=== PATIENT | female | born 2000 | race Caucasian/White ===

== ENCOUNTER 2020-12-24 05:57 | Emergency (ER) | payer SELFPAY ==
[~2020-12-24] VITALS: Ht 162.6 cm; Wt 56.8 kg
--- NOTE | 2020-12-24 07:25 | RAD ---
EXAMINATION: Left foot radiograph. VIEWS: 3 views COMPARISON: None INDICATION:20 years, Female, trauma. FINDINGS: No acute fracture, dislocation or subluxation. No bone erosion or periosteal reaction. Soft tissue sw elling of the dorsal foot overlies metatarsal bones. IMPRESSION: No acute osseous process. Electronically signed by: Aron Valles MD (12/24/2020 7:23 AM) [facility]
[2020-12-24] MEDS ORDERED: ACET1TAB33 PO (07:54)
--- NOTE | 2020-12-24 07:59 | ED.ADGEN ---
Past Medical History Past Medical History: No Pertinent History Past Surgical History: No Surgical History Smoking Status: Current Every Day Smoker Alcohol Use: Occasionally General Adult EDM: Chief Complaint: FOOT INJURY PAIN HPI: HPI: Patient is a 20-year-old previously healthy female who presents to the emergency room complaining of pain to her left foot. Patient was moving last Thursday when she dropped her couch directly onto her foot. She states that she has been having throbbing in her foot since that time and gets sharp shooting pains into the back of her leg. She denies any numbness. She has been able to ambulate. She denies any other injuries. Pain is constant and worse with walking Review of Systems: Review of Systems: Complete ROS is negative unless otherwise documented in HPI Allergies: Allergies: Allergies Coded Allergies Type Severity Reaction Last Updated Verified No Known Drug Allergies 12/24/20 No Physical Exam: PE: General: Awake, alert, NAD. Well Nourished, well hydrated. Cooperative HEENT: Atraumatic, EOMI, PERRL, airway patent, moist oral mucosa Neck: Supple, trachea midline Respiratory: CTA bilaterally, normal effort, no wheezing/crackles CV: RRR, no murmur, cap refill <2 GI: Soft, nondistended, nontender, no masses MSK: Left foot: Significant bruising at the base of all 5 toes with bruising extending through the dorsal foot, 2+ DP/TP pulses, intact sensation, intact range of motion Skin: Warm, dry, intact Neuro: A&O x3, speech NL, sensory and motor grossly intact, no focal deficits Psych: Normal affect, normal mood, not suicidal or homicidal Current Patient Data: Vital Signs: Vital Signs Date Time Temp Pulse Resp B/P (MAP) Pulse Ox O2 Delivery O2 Flow Rate FiO2 12/24/20 07:15 70 16 115/80 (92) 100 Room Air 12/24/20 06:39 98.1 98.1 EKG: EKG: [] Heart Score: C/O Chest Pain: N/A Risk Factors: Risk Factors: DM, Current or recent (<one month) smoker, HTN, HLP, family history of CAD, obesity. Risk Scores: Score 0 - 3: 2.5% MACE over next 6 weeks - Discharge Home Score 4 - 6: 20.3% MACE over next 6 weeks - Admit for Clinical Observation Score 7 - 10: 72.7% MACE over next 6 weeks - Early Invasive Strategies Radiology/Procedures: Radiology/Procedures: [] Course & Med Decision Making: Course & Med Decision Making Pertinent Labs and Imaging studies reviewed. (See chart for details) Patient is 20-year-old female presents to the emergency room with injury to her foot. X-ray was done and there does not appear to be an acute fracture at this time. Foot was placed in Abhinav bandage. I did discuss with the patient and elevating her foot to help with swelling. Patient appears to have a significant foot contusion. Patient's test results and vitals while in the ED were fully reviewed and discussed with the patient. Patient is stable and at this time does not need admission to the hospital. We have discussed strict return precautions and the importance of following up with their Primary Care Physician. Patient stated understanding and was given an opportunity to ask any questions. Patient is in agreement with plan. Rk Disclaimer: Rk Disclaimer: This electronic medical record was generated, in whole or in part, using a voice recognition dictation system. Departure Departure Impression: Primary Impression: Foot contusion Disposition: HOME / SELF CARE / HOMELESS Condition: STABLE Referrals: NO PCP (PCP) Patient Instructions: Foot Contusion Scripts Acetaminophen With Codeine (ACETAMINOPHEN-COD #3 TABLET) 1 Each Tablet 1 TAB PO PRN Q6HRS PRN for PAIN, #10 TAB Prov: LUPE ENGEL MD 12/24/20 LUPE ENGEL MD Dec 24, 2020 07:58
[2020-12-24 08:48] VITALS: BP 118/78
== END 2020-12-24 08:48 | disposition home or self-care (01) ==
LOC: ER 05:57
DX: S90.32XA Contusion of left foot, initial encounter (principal); F17.200 Nicotine dependence, unspecified, uncomplicated; W20.8XXA Other cause of strike by thrown, projected or falling object, initial encounter; Y93.89 Activity, other specified; Y92.89 Other specified places as the place of occurrence of the external cause; Y99.8 Other external cause status
CPT/HCPCS: 73630; 81025; 99283